=== PATIENT | female | born 1950 | race Caucasian/White ===

== ENCOUNTER → 2017-01-26 | Day surgery (SDC) | payer OTHER, MEDICARE ==
[~2017-01-26] VITALS: Ht 154.9 cm; Wt 63.5 kg
[~2017-01-26] MED LIST: COUMADIN
--- NOTE | 2017-01-26 14:55 | Operative Report ---
Operative/Inv Procedure Report Surgery Date: 01/26/17 Name of Procedure: urethral sling, cystoscopy Pre-Operative Diagnosis: stress incontinence Post-Operative Diagnosis: same Estimated Blood Loss: 300cc Surgeon/Melangeur Operator: JHOAN DAO MD Anesthesia: laryngeal mask airway Implants: vaginal mesh Complications: none Condition: stable Operative Indication: stress incontinence Operative/Procedure Note Note: Operative dictation on patient Edda Elmore. 66-year-old female with a history of stress urinary incontinence. She wished to proceed with the sling surgery for the stress incontinence. She was given the risks benefits and alternatives of surgery and all questions were answered. Patient was taken to the operating room placed on the operating table in the supine position. Once the timeout was performed IV antibiotics were infused and LMA anesthesia was then induced. Patient was placed in the dorsolithotomy position. She was prepped and draped in the standard sterile fashion. A Benz catheter was placed at the beginning of the surgery and the bladder was drained and clamped and placed on the patient's abdomen. 1% lidocaine with epinephrine was infiltrated into the lesion under the urethra. An incision was made with # 15 blade and the vaginal flaps are created taking care not to injure the urethra. The Altis Sling kit was then opened and used to place the mesh sling. The trochars provided by the kit were used to place the sling first the patient' s left side and the obturator fascia followed by the right side. It was tensioned in a tension-free manner with a DeBakey between the urethra and the sling. It was seen to be lying in a flat orientation and a tension-free manner. There was grossly irrigated with bacitracin irrigation. The Prolene tightening suture was cut once the sling was in good position. This incision was closed with a running 3-0 Vicryl suture. There was no mesh in the vaginal fornices. Cystoscopy was performed and the bladder was globally inspected. There was no lesions or masses and the ureteral orifices were in their normal anatomic location. There was no bladder mesh or urethral mesh. Bladder was emptied. 2 inch vaginal packing with bacitracin ointment was placed into the vagina. The sponge and needle count were correct end of the case. Patient tolerated the procedure well. Findings: no mesh in bladder, urethra or vaginal fornices Discharge Disposition: PACU
== END ==
LOC: STS 02:12
PROVIDERS: Urology
DX: N39.3 Stress incontinence (female) (male) (principal); Z79.01 Long term (current) use of anticoagulants; Z95.2 Presence of prosthetic heart valve
CPT/HCPCS: 36415; C1771; J0690; J2250